=== PATIENT | female | born 1980 ===

== ENCOUNTER 2019-02-11 08:44 | Emergency (ER) | payer OTHER ==
[2019-02-11 09:14] VITALS: BMI 52.4
[2019-02-11 09:16] VITALS: RESP 18
--- NOTE | 2019-02-11 09:51 | C.PDOC ---
History Of Present Illness 38 y/o obese female, s/p partial hysterectomy, c/o 2 days of lower abdominal pressure and urinary frequency and urgency. +nausea. no fever. chills, vomiting or back pain. pt took otc azo without improvement. Time Seen by Provider: 02/11/19 09:18 Chief Complaint (Nursing): Abdominal Pain History Per: Patient History/Exam Limitations: no limitations Onset/Duration Of Symptoms: Days (x 2) Current Symptoms Are (Timing): Still Present Location Of Pain/Discomfort: Suprapubic Associated Symptoms: Urinary Symptoms Past Medical History Reviewed: Historical Data, Nursing Documentation, Vital Signs Vital Signs: Last Vital Signs Temp 98.4 F 02/11/19 09:14 Pulse 80 02/11/19 09:14 Resp 18 02/11/19 09:14 BP 139/93 H 02/11/19 09:14 Pulse Ox 97 02/11/19 09:14 - Medical History PMH: Comment Only: Asthma (allergy asthma) Surgical History: Family History: States: Unknown Family Hx - Social History Hx Tobacco Use: No Hx Alcohol Use: No Hx Substance Use: No - Immunization History Hx Tetanus Toxoid Vaccination: Yes Hx Influenza Vaccination: Yes Hx Pneumococcal Vaccination: No Review Of Systems Constitutional: Negative for: Fever, Chills Gastrointestinal: Positive for: Abdominal Pain. Negative for: Nausea, Vomiting, Diarrhea Genitourinary: Positive for: Frequency (and urgency). Negative for: Hematuria Musculoskeletal: Negative for: Back Pain Neurological: Negative for: Weakness Physical Exam - Physical Exam Appears: Non-toxic, No Acute Distress Skin: Warm, No Rash Head: Atraumatic, Normacephalic Eye(s): bilateral: PERRL, EOMI Neck: Normal ROM Chest: Symmetrical Cardiovascular: Rhythm Regular, No Murmur Respiratory: No Rales, No Rhonchi, No Wheezing, Other (Lungs CTA bilaterally) Gastrointestinal/Abdominal: Soft, Tenderness (Suprapubic), No Guarding, No Rebound Back: No CVA Tenderness, No Vertebral Tenderness Extremity: Normal ROM, No Swelling Neurological/Psych: Oriented x3, Normal Speech, Normal Cognition ED Course And Treatment O2 Sat by Pulse Oximetry: 97 (RA) Pulse Ox Interpretation: Normal Medical Decision Making Medical Decision Making: Pt with urinary symptoms x 2 days; UA and urine culture sent. UA reviewed. 3+ leuks, WBC, and occasional bacteria. First dose antibiotics given. . 02/13/19 culture results reviewed, e coi, sensitive to macrobid, pt was prescribed this Disposition Counseled Patient/Family Regarding: Studies Performed, Diagnosis, Need For Followup, Rx Given - Disposition Referrals: [facility] [Outside] [facility] [Outside] Disposition: HOME/ ROUTINE Disposition Time: 10:59 Condition: GOOD Additional Instructions: Drink lots of water and cranberry juice. Take antibiotics until completed. Follow up with your doctor or in clinic in 1-2 days. Return to ER for worse symptoms. MEDS SENT TO [facility] [place] 2[place] AE Prescriptions: Nitrofurantoin Macrocrystals [Macrobid] 100 mg PO BID #14 cap Instructions: Urinary Tract Infection, Adult (DC) Forms: General Discharge Instructions, [facility] (Romans[facility]), Work Excuse - Clinical Impression Clinical Impression: UTI (urinary tract infection) - PA / ICE GRINDER / Resident Statement MD/DO has reviewed & agrees with the documentation as recorded. - Scribe Statement The provider has reviewed the documentation as recorded by the Scribloren Mckinney All medical record entries made by the Fazalibloren were at my direction and personally dictated by me. I have reviewed the chart and agree that the record accurately reflects my personal performance of the history, physical exam, medical decision making, and the department course for this patient. I have also personally directed, reviewed, and agree with the discharge instructions and disposition.
[2019-02-11 10:53] LABS: SQUAMOUS EPITHIAL < 1 /hpf (0-5); URINE BACTERIA OCC (<OCC); URINE BILIRUBIN NEGATIVE (NEGATIVE); URINE BLOOD 2+ (NEGATIVE); URINE CLARITY Hazy (Clear); URINE COLOR Amber (YELLOW); URINE GLUCOSE (UA) NORMAL (Normal); URINE LEUKOCYTE ESTERASE 3+ Leu/uL (Negative); URINE PROTEIN NEGATIVE (NEGATIVE)
[2019-02-11 11:15] VITALS: BP 135/85; PULSE 16; TEMP 98.3
[2019-02-13 09:28] VITALS: O2SAT 97
== END 2019-02-11 11:11 | disposition home or self-care (01) ==
LOC: C.ER 08:44
DX: N39.0 Urinary tract infection, site not specified (principal)